=== PATIENT | male | born 1950 | race Caucasian/White ===

== ENCOUNTER 2018-07-26 09:46 | Day surgery (SDC) | payer MEDICARE, BC ==
[~2018-07-26 09:46] MED LIST: Lactated Ringers 1,000 ML IV SCH; Midazolam 1 MG/ML 2 ML SDV ONE; Propofol 200 MG/20 ML SDV ONE; Sodium Chloride 0.9% 10 ML Syringe FLUSH PRN; fentaNYL 100 MCG/2 ML SDV ONE
[2018-07-26] MEDS ORDERED: fentaNYL 100 MCG/2 ML SDV ONE (10:30)
[2018-07-26] MEDS ORDERED: Propofol 200 MG/20 ML SDV ONE (10:30)
[2018-07-26] MEDS ORDERED: Midazolam 1 MG/ML 2 ML SDV ONE (10:30)
[2018-07-26] MEDS ORDERED: Lidocaine 2% 5 ML SDV ONE (10:30)
--- NOTE | 2018-07-26 10:33 | PCM.PN ---
- General Info Date of Service: 07/26/18 - Review of Systems Systems Review Comment:: 67 y/o male here for EGD And colonoscopy. He is medically stable to proceed. His recent H and P is reviewed and no significant changes are noted. I have discussed the proposed procedures with the patient. He agrees to proceed accepting risks. - Patient Data Vitals - Most Recent: Last Vital Signs Temp 97.4 F 07/26/18 10:25 Pulse 78 07/26/18 10:25 Resp 18 07/26/18 10:25 BP 159/79 H 07/26/18 10:25 Pulse Ox 20 L 07/26/18 10:25 Weight - Most Recent: 70.307 kg Med Orders - Current: Current Medications Lactated Ringer's (Ringers, Lactated) 1,000 mls @ 125 mls/hr IV ASDIRECTED KAVEH Last Admin: 07/26/18 10:24 Dose: 125 mls/hr Sodium Chloride (Saline Flush) 10 ml FLUSH ASDIRECTED PRN PRN Reason: Keep Vein Open Discontinued Medications Fentanyl (Sublimaze) Confirm Administered Dose 100 mcg .ROUTE .STK-MED ONE Stop: 07/26/18 08:05 Midazolam HCl (Versed 1 Mg/Ml) Confirm Administered Dose 2 mg .ROUTE .STK-MED ONE Stop: 07/26/18 08:05 Propofol (Diprivan 20 Ml) Confirm Administered Dose 400 mg .ROUTE .STK-MED ONE Stop: 07/26/18 08:06 - Problem List Review Problem List Initiated/Reviewed/Updated: Yes - Assessment Assessment:: GERD with history of ulcer disease change in bowel pattern, family history of colon cancer - Plan Plan:: EGD and colonoscopy
--- NOTE | 2018-07-26 13:50 | PCM.OPNOTE ---
- General Post-Op/Procedure Note Date of Surgery/Procedure: 07/26/18 Operative Procedure(s): EGD with biopsy and colonoscopy Findings: Inflammation in distal esophagus likely from reflux Prior Distal Gastrectomy healed well Moderate Sigmoid Diverticulosis Hemorrhoids Pre Op Diagnosis: GERD. History of colon polyps Post-Op Diagnosis: Reflux esophagitis. Diverticulosis. hemorrhoids Anesthesia Technique: [facility] [place] Primary Surgeon: Guanako Cruz Pathology: Biopsies of Gastric body and distal esophagus EBL in mLs: 3 Complications: None Condition: Good
[2018-07-26 15:48] VITALS: BP 128/86
--- NOTE | 2018-07-26 18:23 | OR ---
Date of Procedure: 07/26/2018 PREOPERATIVE DIAGNOSES: Gastroesophageal reflux disease, family history of colon cancer, history of polyps. POSTOPERATIVE DIAGNOSES: Reflux esophagitis, status post partial gastrectomy, sigmoid diverticulosis, external and internal hemorrhoids. OPERATION PERFORMED: Esophagogastroduodenoscopy with biopsy and colonoscopy. INDICATIONS FOR SURGERY: This 67-year-old male is referred for EGD and colonoscopy. He has a history of reflux disease as well as a family history of colon cancer and a history of colon polyps. FINDINGS: On upper endoscopy, the patient's distal esophagus does show areas of inflammation with some exudate. This extends for 3 cm above the GE junction. No stenosis is identified. The patient has had a previous antrectomy, but the gastric mucosa appears normal. No ulcerations or other lesions were seen. The duodenum also appears normal. On colonoscopy, the patient has a moderate degree of sigmoid diverticulosis and external hemorrhoids of moderate size along with some small internal hemorrhoids. PROCEDURE IN DETAIL: The patient was taken to the operating room. He was given intravenous sedation and his throat was topically anesthetized. The esophagus was intubated with the Olympus gastroscope. This was carefully advanced down through the esophagus, stomach, and down into the duodenum, where examination to the fourth portion was performed. The duodenum was carefully examined and the scope was withdrawn back into the stomach where full examination of the remaining stomach including retroflexed examination of the fundus was performed. Random biopsies of the gastric body were taken to rule out H. pylori. The GE junction and distal esophagus were carefully examined. Biopsies were taken at 2 levels of the distal esophagus because of the inflammation seen there. The scope was then removed and attention was turned to colonoscopy. Digital rectal exam was performed. No rectal masses were noted, but external hemorrhoids are identified. The Olympus colonoscope was inserted into the rectum. Retroflexed examination of the rectal canal was performed. The scope was then carefully advanced through the entire length of the colon until the cecum was reached. Cecal acquisition was confirmed by noting normal internal cecal anatomy including the appendiceal orifice and ileocecal valve. The light was also noted to transilluminate the abdominal wall in the right lower quadrant. After examining the cecum, the scope was slowly withdrawn sequentially re-examining the colonic segments until the entire colon and rectum had been fully examined. The scope was removed and the patient was taken from the operating room in satisfactory condition. ESTIMATED BLOOD LOSS: Minimal. COMPLICATIONS: None. PROGNOSIS: Good. SHEREE Cruz MD /[id number]
== END 2018-07-26 12:44 | disposition home or self-care (01) ==
LOC: LL.SDS 09:46
PROVIDERS: ATTEND Surgery
DX: K21.0 Gastro-esophageal reflux disease with esophagitis (principal); K57.30 Diverticulosis of large intestine without perforation or abscess without bleeding; K64.8 Other hemorrhoids; K64.4 Residual hemorrhoidal skin tags; E78.5 Hyperlipidemia, unspecified; I65.29 Occlusion and stenosis of unspecified carotid artery; Z86.010 Personal history of colon polyps; Z80.0 Family history of malignant neoplasm of digestive organs; Z79.82 Long term (current) use of aspirin; Z79.899 Other long term (current) drug therapy; Z98.890 Other specified postprocedural states
CPT/HCPCS: J2001; J2250; J2704; J3010; J7120

== ENCOUNTER 2021-11-11 07:52 | Day surgery (SDC) | payer BC, MEDICARE, OTHER ==
[2021-11-11] MEDS ORDERED: Sodium Chloride 0.9% 10 ML Syringe FLUSH PRN (08:00)
[2021-11-11] MEDS ORDERED: Lactated Ringers 1,000 ML IV SCH (08:00)
[2021-11-11] MEDS ORDERED: Propofol 200 MG/20 ML SDV ONE (08:19)
[2021-11-11] MEDS ORDERED: Midazolam 1 MG/ML 2 ML SDV ONE (08:19)
[2021-11-11 15:34] VITALS: BP 121/79; PULSE 58
== END 2021-11-11 11:15 | disposition home or self-care (01) ==
LOC: LL.SDS 07:52
PROVIDERS: ATTEND Surgery
DX: K57.30 Diverticulosis of large intestine without perforation or abscess without bleeding (principal); K64.8 Other hemorrhoids; K64.4 Residual hemorrhoidal skin tags; E78.5 Hyperlipidemia, unspecified; Z86.010 Personal history of colon polyps; Z79.82 Long term (current) use of aspirin; Z79.899 Other long term (current) drug therapy
CPT/HCPCS: J2704; J7120

== ENCOUNTER 2024-12-05 09:41 | Day surgery (SDC) | payer MEDICARE ==
[~2024-12-05 09:41] MED LIST changes: -Lactated Ringers 1,000 ML IV SCH; -fentaNYL 100 MCG/2 ML SDV ONE
[2024-12-05] MEDS: Lactated Ringers 1,000 ML IV SCH (10:32)
[2024-12-05] MEDS ORDERED: Ondansetron 4 MG/2 ML SDV IVPUSH ONE (11:26)
[2024-12-05 12:25] VITALS: BP 127/77; PULSE 58
== END 2024-12-05 12:59 | disposition home or self-care (01) ==
LOC: LL.SDS 09:41
PROVIDERS: ATTEND Surgery
DX: Z12.11 Encounter for screening for malignant neoplasm of colon (principal); K57.30 Diverticulosis of large intestine without perforation or abscess without bleeding; E78.49 Other hyperlipidemia; K21.9 Gastro-esophageal reflux disease without esophagitis; Z86.0100 Personal history of colon polyps, unspecified; Z79.899 Other long term (current) drug therapy
CPT/HCPCS: J7120